=== PATIENT | male | born 1980 | race Caucasian/White ===

== ENCOUNTER 2019-02-14 12:14 | Emergency (ER) | payer OTHER ==
[2019-02-14] MEDS ORDERED: Sodium Chloride 0.9% 1,000 ML IV ONE (12:19)
[2019-02-14] MEDS ORDERED: Ondansetron 4 MG/2 ML SDV IVPUSH ONE (12:19)
[2019-02-14] MEDS ORDERED: Ketorolac 30 MG/ML SDV IVPUSH ONE (12:20)
[2019-02-14 12:31] VITALS: BP 165/84; PULSE 65
--- NOTE | 2019-02-14 13:52 | EDM.PDOC ---
ED HPI GENERAL MEDICAL PROBLEM - General Chief Complaint: Genitourinary Problem Stated Complaint: Unable to pee Time Seen by Provider: 02/14/19 12:17 Source of Information: Reports: Patient History Limitations: Reports: No Limitations - History of Present Illness INITIAL COMMENTS - FREE TEXT/NARRATIVE: Pt presents with bilateral flank pain Left worse than right Has nhx/o kidney stones in past Onset: Sudden Duration: Hour(s):, Recurring Location: Reports: Back Associated Symptoms: Reports: Other (Difficulty urinating) - Related Data Allergies Allergy/AdvReac Type Severity Reaction Status Date / Time No Known Allergies Allergy Verified 07/06/14 15:51 Home Meds: Home Meds . [No Known Home Meds] 02/14/19 [History] Past Medical History - Past Health History Medical/Surgical History: Denies Medical/Surgical History Social & Family History - Tobacco Use Smoking Status *Q: Current Every Day Smoker Years of Tobacco use: 20 Packs/Tins Daily: 1 - Caffeine Use Caffeine Use: Reports: Soda - Recreational Drug Use Recreational Drug Use: No - Living Situation & Occupation Living situation: Reports: Occupation: Employed ED ROS GENERAL - Review of Systems Review Of Systems: See Below : Reports: Flank Pain ED EXAM, RENAL/ - Physical Exam Exam: See Below Neck: Supple Respiratory/Chest: Lungs Clear Cardiovascular: Regular Rate, Rhythm GI/Abdominal: Non-Tender Back Exam: CVA Tenderness (L), CVA Tenderness (R) Course - Vital Signs Last Recorded V/S: Last Vital Signs Temp 36.9 C 02/14/19 12:30 Pulse 65 02/14/19 12:30 Resp 12 02/14/19 12:30 BP 165/84 H 02/14/19 12:30 Pulse Ox 98 02/14/19 12:30 - Orders/Labs/Meds Orders: Active Orders 24 hr Category Date Time Status Abdomen Pelvis wo Cont [CT] Stat Exams 02/14/19 12:18 Taken UA RFX WILLARD AND CULT IF INDIC [URIN] Stat Lab 02/14/19 12:17 Ordered Meds: Medications Discontinued Medications Generic Name Dose Route Start Last Admin Trade Name Freq PRN Reason Stop Dose Admin Sodium Chloride 1,000 mls @ 1,000 mls/hr 02/14/19 12:19 02/14/19 12:45 Normal Saline IV 02/14/19 13:18 1,000 mls/hr .BOLUS ONE Administration Ketorolac Tromethamine 30 mg 02/14/19 12:20 02/14/19 12:44 Toradol IVPUSH 02/14/19 12:21 30 mg ONETIME ONE Administration Ondansetron HCl 4 mg 02/14/19 12:19 02/14/19 12:45 Zofran IVPUSH 02/14/19 12:20 4 mg ONETIME ONE Administration - Re-Assessments/Exams Free Text/Narrative Re-Assessment/Exam: 02/14/19 13:50 CT: 2 mm stone either in bladder or at distal UPJ No hydronephrosis 02/14/19 13:51 Pt given NS 1 L, Zofran 4 mg IV and Toradol 30 mg IV in ER Pt pain resolved and is now sleeping Departure - Departure Time of Disposition: 14:00 Disposition: Home, Self-Care 01 Clinical Impression: Kidney stone - Discharge Information *PRESCRIPTION DRUG MONITORING PROGRAM REVIEWED*: Not Applicable *COPY OF PRESCRIPTION DRUG MONITORING REPORT IN PATIENT RAPHAEL: Not Applicable Instructions: Kidney Stones Referrals: PCP,Unknown [Primary Care Provider] - Additional Instructions: Follow up in clinic Sepsis Event Note - Evaluation Sepsis Screening Result: No Definite Risk - Focused Exam Vital Signs: Vital Signs Temp Pulse Resp BP Pulse Ox 02/14/19 12:30 36.9 C 65 12 165/84 H 98 Date Exam was Performed: 02/14/19 Time Exam was Performed: 13:48 - My Orders Last 24 Hours: My Active Orders 02/14/19 12:17 UA RFX WILLARD AND CULT IF INDIC [URIN] Stat 02/14/19 12:18 Abdomen Pelvis wo Cont [CT] Stat - Assessment/Plan Last 24 Hours: My Active Orders 02/14/19 12:17 UA RFX WILLARD AND CULT IF INDIC [URIN] Stat 02/14/19 12:18 Abdomen Pelvis wo Cont [CT] Stat
== END 2019-02-14 14:15 | disposition home or self-care (01) ==
LOC: LL.ED 12:14
DX: N13.2 Hydronephrosis with renal and ureteral calculous obstruction (principal); F17.210 Nicotine dependence, cigarettes, uncomplicated
CPT/HCPCS: 74176; 96361; 96374; 96375; 99284; J1885; J2405; J7030

== ENCOUNTER 2022-07-05 18:26 | Emergency (ER) | payer SELFPAY ==
[2022-07-05 18:33] VITALS: BP 147/89; PULSE 77
== END 2022-07-05 19:21 | disposition home or self-care (01) ==
LOC: LL.ED 18:26
DX: S90.32XA Contusion of left foot, initial encounter (principal); W20.8XXA Other cause of strike by thrown, projected or falling object, initial encounter
CPT/HCPCS: 73620-LT; 99283

== ENCOUNTER 2024-02-17 15:52 | Emergency (ER) | payer SELFPAY ==
[2024-02-17] MEDS ORDERED: cefTRIAXone 1 GM, Lidocaine 1% 2.1 ML IM ONE (16:21)
[2024-02-17] MEDS ORDERED: cefTRIAXone 1 GM, Lidocaine 1% 2.1 ML IM SCH (16:30)
[2024-02-17] MEDS: Take Home: oxyCODONE HCl 5 MG Tab, 5 Tab Pack PO ONE (16:41)
[2024-02-17] MEDS: Take Home: traMADol 50 MG, 4 Tab Pack PO ONE ×3 (16:42→16:46)
[2024-02-17] MEDS: Acetaminophen 325 MG Tab PO ONE (16:45)
[2024-02-17] MEDS: oxyCODONE 5 MG Tab PO ONE (16:45)
[2024-02-17] MEDS: cefTRIAXone 1 GM, Lidocaine 1% 2.1 ML IM ONE (16:46)
[2024-02-17] MEDS: Take Home: Amoxicillin 500 MG, 6 Cap Pack PO ONE (16:46)
[2024-02-17] MEDS: Ketorolac 30 MG/ML SDV IM ONE (16:47)
[2024-02-17] MEDS: Lidocaine 1% 5 ML VIAL INJECT ONE (16:47)
[2024-02-17 17:10] VITALS: BP 148/116; PULSE 70
== END 2024-02-17 17:02 | disposition home or self-care (01) ==
LOC: LL.ED 15:52
DX: K04.7 Periapical abscess without sinus (principal); K02.9 Dental caries, unspecified
CPT/HCPCS: 96372; 99282; 99283; A9270-GY; J0696; J1885; J3490